=== PATIENT | male | born 1955 | race Asian ===

== ENCOUNTER 2019-05-13 16:23 | Inpatient (IN) | payer MEDICARE, OTHER ==
[~2019-05-13] VITALS: Ht 167.6 cm; Wt 60.8 kg
[2019-05-13] MEDS ORDERED: METHOCARBAMOL 500 MG TABLET PO PRN (21:30)
[2019-05-13] MEDS ORDERED: *NON-FORMULARY MED [ENTER DRUG, DOSE, FREQ IN COMMENTS] CLINICAL ONE (21:30)
[2019-05-13] MEDS ORDERED: ACETAMINOPHEN 325 MG TABLET PO PRN (21:30)
[2019-05-13] MEDS ORDERED: DOCUSATE SODIUM 100 MG/10 ML LIQUID UDCUP PO SCH (21:30)
[2019-05-13 21:40] VITALS: BP 145/79
[2019-05-13] MEDS: DOCUSATE SODIUM 100 MG CAPSULE PO SCH (22:50)
[2019-05-13] MEDS: FAMOTIDINE 20 MG TABLET PO SCH (22:50)
[2019-05-13] MEDS: SENNA 187 MG TABLET PO SCH (22:50)
[2019-05-13] MEDS: ROSUVASTATIN CALCIUM 20 MG TABLET PO SCH (22:51)
[2019-05-14] VITALS: BP 120/66
[2019-05-14] MEDS: HEPARIN SODIUM,PORCINE 5,000 UNITS/ML VIAL SQ SCH ×4 (00:10→23:11)
[2019-05-14] MEDS: MELATONIN 3 MG TABLET PO PRN ×2 (00:23→20:15)
[2019-05-14 07:10] VITALS: BP 131/72
[2019-05-14 07:14] LABS: BASOPHILS % (AUTO) 0.7 % (0.0-2.0); EOSINOPHILS % (AUTO) 2.9 % (1.0-6.0); HEMATOCRIT 32.3 % (41-53); HEMOGLOBIN 10.5 g/dL (13.5-17.5); LYMPHOCYTES # (AUTO) 1.3 K/uL (1.0-4.8); LYMPHOCYTES % (AUTO) 9.3 % (22.0-44.0); MEAN CORPUSCULAR HEMOGLOBIN 27.5 pg (26.0-34.0); MEAN CORPUSCULAR HGB CONC 32.5 G/dL (31.0-37.0); MEAN CORPUSCULAR VOLUME 85 fL (80-100); MONOCYTES # (AUTO) 1.5 K/uL (0.1-1.0); NEUTROPHILS # (AUTO) 10.3 K/uL (1.8-7.7); NEUTROPHILS % (AUTO) 76.1 % (40.0-70.0); PLATELET COUNT (AUTO) 374 K/uL (150-450); RED BLOOD CELL COUNT(AUTO) 3.83 MIL/uL (4.50-5.90); RED CELL DISTRIBUTION WIDTH 14.1 % (11.5-14.5)
[2019-05-14 07:32] LABS: ALANINE AMINOTRANSFERASE 95 U/L (12-78); ALBUMIN 3.2 g/dL (3.4-5.0); ALKALINE PHOSPHATASE 241 U/L (46-116); ANION GAP 8 mmol/L (8-16); ASPARTATE AMINOTRANSFERASE 86 U/L (15-37); BILIRUBIN,TOTAL 0.8 mg/dL (0.1-1.0); CALCIUM, TOTAL 8.6 mg/dL (8.8-10.5); CARBON DIOXIDE 27 mmol/L (22-29); CHLORIDE 94 mmol/L (98-107); CREATININE 0.77 mg/dL (0.60-1.30); GLOMERULAR FILTR. RATE CALC > 60 mL/min (>60); GLUCOSE,RANDOM 110 mg/dL (70-110); POTASSIUM 4.1 mmol/L (3.5-5.1); SODIUM SERUM 129 mmol/L (136-145); TOTAL PROTEIN, SERUM 7.5 g/dL (6.4-8.2); UREA NITROGEN, BLOOD 19 mg/dL (7-18)
[2019-05-14] MEDS: DOCUSATE SODIUM 100 MG CAPSULE PO SCH ×2 (08:05→20:13)
[2019-05-14] MEDS: ASPIRIN 81 MG EC TABLET PO SCH (08:06)
[2019-05-14] MEDS: BENAZEPRIL HCL 10 MG TABLET PO SCH (08:06)
[2019-05-14] MEDS: FAMOTIDINE 20 MG TABLET PO SCH ×2 (08:06→20:14)
[2019-05-14] MEDS: AmLODIPine BESYLATE 2.5 MG TABLET PO SCH (08:06)
[2019-05-14 14:43] LABS: APPEARANCE,URINE CLEAR (CLEAR); BILIRUBIN,URINE NEGATIVE (NEGATIVE); GLUCOSE, URINE (UA) NEGATIVE (NEGATIVE); KETONES,URINE NEGATIVE (NEGATIVE); LEUKOCYTE ESTERASE ,URINE NEGATIVE (NEGATIVE); NITRATE,URINE NEGATIVE (NEGATIVE); OCCULT BLOOD,URINE TRACE (NEGATIVE); PH,URINE 6.5 (5.0-8.0); PROTEIN,URINE TRACE (NEGATIVE)
[2019-05-14 14:47] LABS: BACTERIA,URINE None Seen /HPF (None Seen); RBC,URINE 0-2 /HPF (0-2); WBC,URINE None Seen /HPF (0-5)
[2019-05-14 15:06] VITALS: BP 107/65
[2019-05-14] MEDS: SENNA 187 MG TABLET PO SCH (20:13)
[2019-05-14] MEDS: ROSUVASTATIN CALCIUM 20 MG TABLET PO SCH (20:14)
[2019-05-14 23:38] VITALS: BP 106/58
[2019-05-15 07:00] VITALS: BP 123/69
[2019-05-15] MEDS: FAMOTIDINE 20 MG TABLET PO SCH ×2 (08:29→20:53)
[2019-05-15 08:30] VITALS: BP 126/81
[2019-05-15] MEDS: AmLODIPine BESYLATE 2.5 MG TABLET PO SCH (08:30)
[2019-05-15] MEDS: DOCUSATE SODIUM 100 MG CAPSULE PO SCH ×2 (08:30→20:53)
[2019-05-15] MEDS: ASPIRIN 81 MG EC TABLET PO SCH (08:31)
[2019-05-15] MEDS: BENAZEPRIL HCL 10 MG TABLET PO SCH (08:32)
[2019-05-15] MEDS: HEPARIN SODIUM,PORCINE 5,000 UNITS/ML VIAL SQ SCH ×3 (08:33→23:08)
[2019-05-15 16:33] VITALS: BP 112/63
[2019-05-15] MEDS: SENNA 187 MG TABLET PO SCH (20:53)
[2019-05-15] MEDS: ROSUVASTATIN CALCIUM 20 MG TABLET PO SCH (20:53)
[2019-05-15] MEDS: MELATONIN 3 MG TABLET PO PRN (20:53)
[2019-05-15 23:30] VITALS: BP 117/71
[2019-05-16] MEDS: HEPARIN SODIUM,PORCINE 5,000 UNITS/ML VIAL SQ SCH ×3 (08:06→23:52)
[2019-05-16] MEDS: BENAZEPRIL HCL 10 MG TABLET PO SCH (09:00)
[2019-05-16] MEDS: AmLODIPine BESYLATE 2.5 MG TABLET PO SCH (09:00)
[2019-05-16] MEDS: FAMOTIDINE 20 MG TABLET PO SCH ×2 (09:00→20:27)
[2019-05-16] MEDS: ASPIRIN 81 MG EC TABLET PO SCH (09:01)
[2019-05-16] MEDS: DOCUSATE SODIUM 100 MG CAPSULE PO SCH ×2 (09:01→20:27)
[2019-05-16 09:50] VITALS: BP 116/75
[2019-05-16 16:41] VITALS: BP 111/70
[2019-05-16] MEDS: SENNA 187 MG TABLET PO SCH (20:27)
[2019-05-16] MEDS: ROSUVASTATIN CALCIUM 20 MG TABLET PO SCH (20:27)
[2019-05-16] MEDS: MELATONIN 3 MG TABLET PO PRN (20:27)
[2019-05-17 00:24] VITALS: BP 110/67
[2019-05-17 07:37] VITALS: BP 121/71
[2019-05-17 08:10] VITALS: BP 124/74
[2019-05-17] MEDS: AmLODIPine BESYLATE 2.5 MG TABLET PO SCH (08:11)
[2019-05-17] MEDS: BENAZEPRIL HCL 10 MG TABLET PO SCH (08:11)
[2019-05-17] MEDS: FAMOTIDINE 20 MG TABLET PO SCH ×2 (08:11→22:01)
[2019-05-17] MEDS: DOCUSATE SODIUM 100 MG CAPSULE PO SCH ×2 (08:11→22:01)
[2019-05-17] MEDS: ASPIRIN 81 MG EC TABLET PO SCH (08:11)
[2019-05-17] MEDS: HEPARIN SODIUM,PORCINE 5,000 UNITS/ML VIAL SQ SCH ×3 (08:12→23:45)
[2019-05-17 15:00] VITALS: BP 120/76
[2019-05-17] MEDS: SENNA 187 MG TABLET PO SCH (22:01)
[2019-05-17] MEDS: ROSUVASTATIN CALCIUM 20 MG TABLET PO SCH (22:01)
[2019-05-17] MEDS: MELATONIN 3 MG TABLET PO PRN (22:02)
[2019-05-18] VITALS: BP 110/71
[2019-05-18 07:15] VITALS: BP 133/75
[2019-05-18 07:24] LABS: EOSINOPHILS % (AUTO) 7.8 % (1.0-6.0); HEMATOCRIT 30.7 % (41-53); LYMPHOCYTES # (AUTO) 1.4 K/uL (1.0-4.8); LYMPHOCYTES % (AUTO) 18.1 % (22.0-44.0); MEAN CORPUSCULAR HEMOGLOBIN 27.7 pg (26.0-34.0); MEAN CORPUSCULAR HGB CONC 32.7 G/dL (31.0-37.0); MEAN CORPUSCULAR VOLUME 85 fL (80-100); MONOCYTES % (AUTO) 13.5 % (2.0-9.0); NEUTROPHILS # (AUTO) 4.5 K/uL (1.8-7.7); NEUTROPHILS % (AUTO) 58.6 % (40.0-70.0); PLATELET COUNT (AUTO) 488 K/uL (150-450); RED BLOOD CELL COUNT(AUTO) 3.63 MIL/uL (4.50-5.90); RED CELL DISTRIBUTION WIDTH 14.5 % (11.5-14.5)
[2019-05-18 07:44] LABS: ANION GAP 8 mmol/L (8-16); CALCIUM, TOTAL 9.2 mg/dL (8.8-10.5); CARBON DIOXIDE 27 mmol/L (22-29); CHLORIDE 96 mmol/L (98-107); CREATININE 0.83 mg/dL (0.60-1.30); GLOMERULAR FILTR. RATE CALC > 60 mL/min (>60); GLUCOSE,RANDOM 96 mg/dL (70-110); POTASSIUM 4.2 mmol/L (3.5-5.1); SODIUM SERUM 131 mmol/L (136-145); UREA NITROGEN, BLOOD 13 mg/dL (7-18)
[2019-05-18] MEDS: BENAZEPRIL HCL 10 MG TABLET PO SCH (08:34)
[2019-05-18] MEDS: AmLODIPine BESYLATE 2.5 MG TABLET PO SCH (08:34)
[2019-05-18] MEDS: FAMOTIDINE 20 MG TABLET PO SCH ×2 (08:34→20:22)
[2019-05-18] MEDS: DOCUSATE SODIUM 100 MG CAPSULE PO SCH ×2 (08:34→20:22)
[2019-05-18] MEDS: HEPARIN SODIUM,PORCINE 5,000 UNITS/ML VIAL SQ SCH ×3 (08:34→23:13)
[2019-05-18] MEDS: ASPIRIN 81 MG EC TABLET PO SCH (08:34)
[2019-05-18 16:14] VITALS: BP 119/68
[2019-05-18] MEDS: MELATONIN 3 MG TABLET PO PRN (20:22)
[2019-05-18] MEDS: SENNA 187 MG TABLET PO SCH (20:22)
[2019-05-18] MEDS: ROSUVASTATIN CALCIUM 20 MG TABLET PO SCH (20:22)
[2019-05-18 23:49] VITALS: BP 113/70
[2019-05-19 07:00] VITALS: BP 116/66
[2019-05-19] MEDS: HEPARIN SODIUM,PORCINE 5,000 UNITS/ML VIAL SQ SCH ×3 (08:11→23:16)
[2019-05-19] MEDS: BENAZEPRIL HCL 10 MG TABLET PO SCH (08:15)
[2019-05-19] MEDS: DOCUSATE SODIUM 100 MG CAPSULE PO SCH ×2 (08:15→20:08)
[2019-05-19] MEDS: ASPIRIN 81 MG EC TABLET PO SCH (08:15)
[2019-05-19] MEDS: AmLODIPine BESYLATE 2.5 MG TABLET PO SCH (08:16)
[2019-05-19] MEDS: FAMOTIDINE 20 MG TABLET PO SCH ×2 (08:16→20:08)
[2019-05-19 11:45] VITALS: BP 121/84
[2019-05-19 15:05] VITALS: BP 106/70
[2019-05-19] MEDS: MELATONIN 3 MG TABLET PO PRN (20:08)
[2019-05-19] MEDS: SENNA 187 MG TABLET PO SCH (20:08)
[2019-05-19] MEDS: ROSUVASTATIN CALCIUM 20 MG TABLET PO SCH (20:08)
[2019-05-19 23:49] VITALS: BP 103/71
[2019-05-20 07:01] VITALS: BP 128/87
[2019-05-20] MEDS: HEPARIN SODIUM,PORCINE 5,000 UNITS/ML VIAL SQ SCH ×3 (07:49→23:06)
[2019-05-20] MEDS: FAMOTIDINE 20 MG TABLET PO SCH ×2 (09:12→20:01)
[2019-05-20] MEDS: AmLODIPine BESYLATE 2.5 MG TABLET PO SCH (09:13)
[2019-05-20] MEDS: DOCUSATE SODIUM 100 MG CAPSULE PO SCH ×2 (09:13→20:01)
[2019-05-20] MEDS: ASPIRIN 81 MG EC TABLET PO SCH (09:13)
[2019-05-20] MEDS: BENAZEPRIL HCL 10 MG TABLET PO SCH (09:24)
[2019-05-20 15:07] VITALS: BP 119/64
[2019-05-20] MEDS: ROSUVASTATIN CALCIUM 20 MG TABLET PO SCH (20:00)
[2019-05-20] MEDS: SENNA 187 MG TABLET PO SCH (20:01)
[2019-05-20] MEDS: MELATONIN 3 MG TABLET PO PRN (20:01)
[2019-05-20 23:40] VITALS: BP 95/61
[2019-05-21 07:30] VITALS: BP 111/73
[2019-05-21] MEDS: FAMOTIDINE 20 MG TABLET PO SCH ×2 (08:33→20:46)
[2019-05-21] MEDS: ASPIRIN 81 MG EC TABLET PO SCH (08:33)
[2019-05-21] MEDS: AmLODIPine BESYLATE 2.5 MG TABLET PO SCH (08:33)
[2019-05-21] MEDS: HEPARIN SODIUM,PORCINE 5,000 UNITS/ML VIAL SQ SCH ×3 (08:33→23:06)
[2019-05-21] MEDS: BENAZEPRIL HCL 10 MG TABLET PO SCH (08:33)
[2019-05-21] MEDS: DOCUSATE SODIUM 100 MG CAPSULE PO SCH ×2 (08:34→20:46)
[2019-05-21 15:51] VITALS: BP 102/64
[2019-05-21] MEDS: MELATONIN 3 MG TABLET PO PRN (20:46)
[2019-05-21] MEDS: SENNA 187 MG TABLET PO SCH (20:46)
[2019-05-21] MEDS: ROSUVASTATIN CALCIUM 20 MG TABLET PO SCH (20:46)
[2019-05-22 00:40] VITALS: BP 99/63
[2019-05-22 07:10] VITALS: BP 116/72
[2019-05-22] MEDS: HEPARIN SODIUM,PORCINE 5,000 UNITS/ML VIAL SQ SCH ×2 (07:41→16:18)
[2019-05-22] MEDS: BENAZEPRIL HCL 10 MG TABLET PO SCH (08:08)
[2019-05-22] MEDS: ASPIRIN 81 MG EC TABLET PO SCH (08:09)
[2019-05-22] MEDS: AmLODIPine BESYLATE 2.5 MG TABLET PO SCH (08:10)
[2019-05-22] MEDS: FAMOTIDINE 20 MG TABLET PO SCH ×2 (08:10→20:57)
[2019-05-22] MEDS: DOCUSATE SODIUM 100 MG CAPSULE PO SCH ×2 (08:10→20:57)
[2019-05-22 15:30] VITALS: BP 112/71
[2019-05-22] MEDS: ROSUVASTATIN CALCIUM 20 MG TABLET PO SCH (20:57)
[2019-05-22] MEDS: SENNA 187 MG TABLET PO SCH (20:57)
[2019-05-22] MEDS: MELATONIN 3 MG TABLET PO PRN (20:57)
[2019-05-23] MEDS: HEPARIN SODIUM,PORCINE 5,000 UNITS/ML VIAL SQ SCH ×4 (01:26→23:16)
[2019-05-23 01:30] VITALS: BP 120/74
[2019-05-23] MEDS ORDERED: BENA5TAB26 PO (03:06)
[2019-05-23] MEDS ORDERED: ASPI-1111 PO (03:06)
[2019-05-23] MEDS ORDERED: AMLO2.5T4 PO (03:06)
[2019-05-23] MEDS ORDERED: ROSU20TA23 PO (03:07)
[2019-05-23] MEDS ORDERED: DOCU-275 PO (03:07)
[2019-05-23] MEDS ORDERED: FAMO20 PO (03:07)
[2019-05-23 07:00] VITALS: BP 116/75
[2019-05-23 07:06] LABS: ALANINE AMINOTRANSFERASE 78 U/L (12-78); ALBUMIN 3.5 g/dL (3.4-5.0); ALKALINE PHOSPHATASE 293 U/L (46-116); ANION GAP 9 mmol/L (8-16); ASPARTATE AMINOTRANSFERASE 57 U/L (15-37); BILIRUBIN,TOTAL 0.3 mg/dL (0.1-1.0); CALCIUM, TOTAL 9.3 mg/dL (8.8-10.5); CARBON DIOXIDE 27 mmol/L (22-29); CHLORIDE 97 mmol/L (98-107); CREATININE 0.81 mg/dL (0.60-1.30); GLOMERULAR FILTR. RATE CALC > 60 mL/min (>60); GLUCOSE,RANDOM 102 mg/dL (70-110); SODIUM SERUM 133 mmol/L (136-145); TOTAL PROTEIN, SERUM 8.3 g/dL (6.4-8.2); UREA NITROGEN, BLOOD 20 mg/dL (7-18)
[2019-05-23] MEDS: BENAZEPRIL HCL 10 MG TABLET PO SCH (09:17)
[2019-05-23] MEDS: AmLODIPine BESYLATE 2.5 MG TABLET PO SCH (09:17)
[2019-05-23] MEDS: FAMOTIDINE 20 MG TABLET PO SCH ×2 (09:18→20:07)
[2019-05-23] MEDS: ASPIRIN 81 MG EC TABLET PO SCH (09:19)
[2019-05-23] MEDS: DOCUSATE SODIUM 100 MG CAPSULE PO SCH ×2 (09:19→20:07)
[2019-05-23 15:05] VITALS: BP 111/69
[2019-05-23] MEDS: ROSUVASTATIN CALCIUM 20 MG TABLET PO SCH (20:07)
[2019-05-23] MEDS: SENNA 187 MG TABLET PO SCH (20:07)
[2019-05-23] MEDS: MELATONIN 3 MG TABLET PO PRN (20:07)
[2019-05-23 23:45] VITALS: BP 102/69
[2019-05-24 07:00] VITALS: BP 112/62
[2019-05-24] MEDS: DOCUSATE SODIUM 100 MG CAPSULE PO SCH (07:59)
[2019-05-24] MEDS: HEPARIN SODIUM,PORCINE 5,000 UNITS/ML VIAL SQ SCH (08:00)
[2019-05-24] MEDS: ASPIRIN 81 MG EC TABLET PO SCH (08:00)
[2019-05-24] MEDS: BENAZEPRIL HCL 10 MG TABLET PO SCH (08:00)
[2019-05-24] MEDS: FAMOTIDINE 20 MG TABLET PO SCH (08:00)
[2019-05-24] MEDS: AmLODIPine BESYLATE 2.5 MG TABLET PO SCH (08:01)
== END 2019-05-24 12:00 | disposition home health service (06) | DRG 64 ==
LOC: 2WR 20:35
PROVIDERS: ADMIT Physical Medicine & Rehabilitation; ATTEND Physical Medicine & Rehabilitation
DX: I63.441 Cerebral infarction due to embolism of right cerebellar artery (principal); I61.8 Other nontraumatic intracerebral hemorrhage; E87.1 Hypo-osmolality and hyponatremia; E46 Unspecified protein-calorie malnutrition; I69.393 Ataxia following cerebral infarction; I63.40 Cerebral infarction due to embolism of unspecified cerebral artery; K44.9 Diaphragmatic hernia without obstruction or gangrene; R27.0 Ataxia, unspecified; R29.700 NIHSS score 0; C80.1 Malignant (primary) neoplasm, unspecified; D72.829 Elevated white blood cell count, unspecified; G47.00 Insomnia, unspecified; E78.5 Hyperlipidemia, unspecified; D64.9 Anemia, unspecified; E78.00 Pure hypercholesterolemia, unspecified; I10 Essential (primary) hypertension; Z79.82 Long term (current) use of aspirin; Z83.71 Family history of colonic polyps; Z80.0 Family history of malignant neoplasm of digestive organs; Z68.21 Body mass index [BMI] 21.0-21.9, adult
CPT/HCPCS: 87081; 92507; 92508; 92523; 93970; 97110; 97112; 97116; 97150; 97162; 97165; 97530; 97535; 99366; J1644